=== PATIENT | male | born 1975 | race Caucasian/White ===

== ENCOUNTER 2017-12-15 18:32 | Emergency (ER) | payer MEDICAID, OTHER ==
[~2017-12-15] VITALS: Ht 177.8 cm; Wt 82.0 kg
[~2017-12-15 18:32] MED LIST: ACYC-202 PO; CARI350T PO; CYCL-1 PO; GABA-532 PO
[2017-12-15 18:35] VITALS: BP 139/84
== END 2017-12-15 19:56 | disposition left against medical advice (07) ==
LOC: ER 18:33
DX: R07.89 Other chest pain (principal); Z53.21 Procedure and treatment not carried out due to patient leaving prior to being seen by health care provider